=== PATIENT | male | born 1985 | race Two or more races ===

== ENCOUNTER 2025-08-20 09:11 | Emergency (ER) | payer OTHER ==
[~2025-08-20] VITALS: Ht 167.6 cm; Wt 74.8 kg
[2025-08-20] MEDS: CLONIDINE HCL 0.1 MG TABLET PO ONE (09:51)
[2025-08-20] MEDS ORDERED: ONDANSETRON HCL/PF 4 MG/2 ML VIAL ONE (09:54)
[2025-08-20] MEDS: IV NS 0.9% 1,000 ML BAG IV ONE (10:02)
[2025-08-20] MEDS: ONDANSETRON HCL/PF - ER 4 MG/2 ML VIAL IV ONE (10:02)
[2025-08-20] MEDS ORDERED: PANTOPRAZOLE 40 MG VIAL ONE (10:03)
[2025-08-20] MEDS: PANTOPRAZOLE 40 MG VIAL IV ONE (10:07)
[2025-08-20] MEDS ORDERED: METO-295 PO (11:00)
[2025-08-20] MEDS: METOCLOPRAMIDE HCL 10 MG/2 ML VIAL IV ONE (11:00)
[2025-08-20] MEDS ORDERED: METOCLOPRAMIDE HCL 10 MG/2 ML VIAL ONE (11:06)
[2025-08-20 11:38] VITALS: BP 119/89; TEMP 98.7; O2SAT 100
== END 2025-08-20 11:38 | disposition home or self-care (01) ==
LOC: ER 09:23
DX: F11.23 Opioid dependence with withdrawal (principal); R11.0 Nausea; F15.20 Other stimulant dependence, uncomplicated
CPT/HCPCS: 99284; 96374; 96375; 96361; J2765; J2405 ×2; J7030; J2470